=== PATIENT | male | born 1975 | race Two or more races ===

== ENCOUNTER 2024-04-29 11:51 | Inpatient (IN) | payer MEDICARE, OTHER ==
[~2024-04-29] VITALS: Ht 180.3 cm; Wt 120.2 kg
[2024-04-29] MEDS ORDERED: HEMOSTATIC MATRIX 8 ML 1 EACH PAD MC ONE (11:57)
[2024-04-29] MEDS ORDERED: CELLULOSE,OXIDIZED 1 EA PACK MC ONE (11:57)
[2024-04-29] MEDS ORDERED: CELLULOSE,OXIDIZED 1 EACH EACH MC ONE (11:58)
[2024-04-29] MEDS ORDERED: LIDOCAINE HCL/MPF 1% 30 ML VIAL IJ ONE (11:58)
[2024-04-29] MEDS ORDERED: CELLULOSE,OXIDIZED 1 PKT EACH MC ONE (11:58)
[2024-04-29] MEDS ORDERED: ROPIVACAINE HCL 0.5% 5 MG/ML 30ML VIAL ONE ×2 (11:58→16:34)
[2024-04-29] MEDS ORDERED: ANESTHESIA TRAY IN PYXIS 1 EA TRAY MC ONE (11:58)
[2024-04-29] MEDS ORDERED: HEPARIN SODIUM, PORCINE 1,000 UNIT/ML VIAL ONE (11:58)
[2024-04-29 13:26] LABS: BASOPHILS # (AUTO) 0.1 K/uL (0.0-0.2); BASOPHILS % (AUTO) 1.1 % (0.0-2.0); EOSINOPHILS # (AUTO) 0.1 K/uL (0.0-0.7); EOSINOPHILS % (AUTO) 1.8 % (0.0-6.0); HEMATOCRIT 28 % (39-51); HEMOGLOBIN 9.5 g/dL (13.5-17.5); LYMPHOCYTES # (AUTO) 0.7 K/uL (0.8-4.8); LYMPHOCYTES % (AUTO) 8.6 % (20.0-44.0); MEAN CORPUSCULAR HEMOGLOBIN 31 PG (26.0-33.0); MEAN CORPUSCULAR HGB CONC 34 g/dl (31.0-36.0); MEAN CORPUSCULAR VOLUME 92 fL (80-96); MONOCYTES # (AUTO) 0.8 K/uL (0.1-1.30); NEUTROPHILS % (AUTO) 78.5 % (43.0-81.0); PLATELET COUNT (AUTO) 246 K/uL (150-450); RED BLOOD CELL COUNT(AUTO) 3.06 MIL/uL (4.5-6.0); RED CELL DISTRIBUTION WIDTH 14.5 % (11.5-15.0); WHITE BLOOD COUNT (AUTO) 7.6 K/uL (4.3-11.0)
[2024-04-29 13:40] LABS: CALCIUM, SERUM 8.3 mg/dL (8.5-10.1); CREATININE 3.6 mg/dL (0.6-1.3); POTASSIUM 3.5 mmol/L (3.5-5.1)
[2024-04-29 13:59] LABS: BILIRUBIN,TOTAL 0.7 mg/dL (0.2-1.0); TOTAL PROTEIN, SERUM 7.1 g/dL (6.4-8.2)
[2024-04-29] MEDS ORDERED: ROCURONIUM BROMIDE 50 MG/5 ML ONE (14:59)
[2024-04-29] MEDS ORDERED: MAG HYDROX/AL HYDROX/SIMETH 30 ML UDC PO PRN (18:30)
[2024-04-29] MEDS ORDERED: hydrALAZINE HCL IV 20 MG VIAL IV ONE (18:30)
[2024-04-29] MEDS ORDERED: MAGNESIUM HYDROXIDE 30 ML UDC PO PRN (18:30)
[2024-04-29] MEDS ORDERED: ONDANSETRON HCL/PF 4 MG/2 ML VIAL IVP PRN (18:30)
[2024-04-29] MEDS ORDERED: HYDROMORPHONE 1 MG/1 ML DISP.SYRIN IV PRN (18:30)
[2024-04-29] MEDS ORDERED: Z GUARD REMEDY 4 OZ OINT TP PRN (18:30)
[2024-04-29] MEDS ORDERED: ACETAMINOPHEN 325 MG TABLET PO PRN (18:30)
[2024-04-29] MEDS ORDERED: DEXTROSE 50%-WATER 50 ML DISP.SYRIN IV PRN (19:00)
[2024-04-29] MEDS ORDERED: CLON1PAT12 TP (19:06)
[2024-04-29] MEDS ORDERED: LORA-259 PO (19:06)
[2024-04-29] MEDS ORDERED: FURO80TA3 PO (19:06)
[2024-04-29] MEDS ORDERED: VALS320T16 PO (19:06)
[2024-04-29] MEDS ORDERED: LISI40TA13 PO (19:06)
[2024-04-29] MEDS ORDERED: GABA-532 PO (19:06)
[2024-04-29] MEDS ORDERED: HYDR-3980 PO (19:06)
[2024-04-29] MEDS ORDERED: ATOR20TA PO (19:06)
[2024-04-29 20:00] VITALS: BP 177/71; TEMP 98.1; O2SAT 93
[2024-04-29] MEDS: HYDROCODONE/APAP 10/325MG TABLET PO PRN (20:09)
[2024-04-29] MEDS: CEFTAZIDIME 1 G in IV D5W 50 ML IV SCH (20:54)
[2024-04-29] MEDS: BLOOD SUGAR DIAGNOSTIC 1 EACH STRIP IN SCH (22:01)
[2024-04-29] MEDS: INSULIN REGULAR, HUMAN 100 UNIT/ML 3 ML VIAL SQ PRN (22:06)
[2024-04-29] MEDS: GABAPENTIN 100 MG CAPSULE PO SCH (22:08)
[2024-04-29] MEDS: ATORVASTATIN 40 MG TABLET PO SCH (22:08)
[2024-04-29] MEDS: LORAZEPAM 1 MG TABLET PO PRN (23:45)
[2024-04-30 06:54] LABS: BASOPHILS # (AUTO) 0.1 K/uL (0.0-0.2); BASOPHILS % (AUTO) 1.1 % (0.0-2.0); EOSINOPHILS # (AUTO) 0.1 K/uL (0.0-0.7); HEMATOCRIT 27 % (39-51); HEMOGLOBIN 9.3 g/dL (13.5-17.5); LYMPHOCYTES # (AUTO) 0.6 K/uL (0.8-4.8); LYMPHOCYTES % (AUTO) 8.6 % (20.0-44.0); MEAN CORPUSCULAR HEMOGLOBIN 32 PG (26.0-33.0); MEAN CORPUSCULAR HGB CONC 35 g/dl (31.0-36.0); MEAN CORPUSCULAR VOLUME 93 fL (80-96); MONOCYTES # (AUTO) 0.8 K/uL (0.1-1.30); MONOCYTES % (AUTO) 10.5 % (2.0-12.0); NEUTROPHILS # (AUTO) 5.8 K/uL (1.8-8.9); NEUTROPHILS % (AUTO) 77.8 % (43.0-81.0); PLATELET COUNT (AUTO) 227 K/uL (150-450); RED CELL DISTRIBUTION WIDTH 14.3 % (11.5-15.0); WHITE BLOOD COUNT (AUTO) 7.4 K/uL (4.3-11.0)
[2024-04-30 07:09] LABS: CALCIUM, SERUM 8.2 mg/dL (8.5-10.1); CREATININE 5.3 mg/dL (0.6-1.3); MAGNESIUM 2.1 mg/dL (1.8-2.4); PHOSPHORUS 4.6 mg/dL (2.5-4.9); POTASSIUM 3.6 mmol/L (3.5-5.1)
[2024-04-30 08:00] VITALS: BP 192/80; TEMP 98.2; O2SAT 98
[2024-04-30] MEDS: VALSARTAN 80 MG TABLET PO SCH (08:02)
[2024-04-30 08:08] VITALS: BP 192/80
[2024-04-30] MEDS: hydrALAZINE HCL IV 20 MG VIAL IV PRN (08:08)
== END 2024-04-30 11:06 | disposition home or self-care (01) | DRG 252 ==
LOC: DS 11:51 → MED 17:58
PROVIDERS: ADMIT Nurse Practitioner Acute Care
PROC: 03U Upper Arteries, Supplement (ICD-10-PCS; principal; 2024-04-29)
PROC: 03B83ZZ Excision of Left Brachial Artery, Percutaneous Approach (ICD-10-PCS; 2024-04-29)
PROC: 05U Upper Veins, Supplement (ICD-10-PCS; 2024-04-29)
PROC: 05B Upper Veins, Excision (ICD-10-PCS; 2024-04-29)
PROC: 0JH63XZ Insertion of Tunneled Vascular Access Device into Chest Subcutaneous Tissue and Fascia, Percutaneous Approach (ICD-10-PCS; 2024-04-29)
PROC: 05HM33Z Insertion of Infusion Device into Right Internal Jugular Vein, Percutaneous Approach (ICD-10-PCS; 2024-04-29)
PROC: B513YZA Fluoroscopy of Right Jugular Veins using Other Contrast, Guidance (ICD-10-PCS; 2024-04-29)
PROC: 5A1D70Z Performance of Urinary Filtration, Intermittent, Less than 6 Hours Per Day (ICD-10-PCS; 2024-04-30)
DX: T82.7XXA Infection and inflammatory reaction due to other cardiac and vascular devices, implants and grafts, initial encounter (principal); N18.6 End stage renal disease; I12.0 Hypertensive chronic kidney disease with stage 5 chronic kidney disease or end stage renal disease; E87.1 Hypo-osmolality and hyponatremia; I16.0 Hypertensive urgency; Z99.2 Dependence on renal dialysis; Y92.009 Unspecified place in unspecified non-institutional (private) residence as the place of occurrence of the external cause; Z86.19 Personal history of other infectious and parasitic diseases; E11.22 Type 2 diabetes mellitus with diabetic chronic kidney disease; D63.1 Anemia in chronic kidney disease; E78.5 Hyperlipidemia, unspecified; I72.1 Aneurysm of artery of upper extremity; M89.8X9 Other specified disorders of bone, unspecified site; Y83.2 Surgical operation with anastomosis, bypass or graft as the cause of abnormal reaction of the patient, or of later complication, without mention of misadventure at the time of the procedure; Z95.2 Presence of prosthetic heart valve; E66.9 Obesity, unspecified; Z68.37 Body mass index [BMI] 37.0-37.9, adult; Z79.2 Long term (current) use of antibiotics; Z79.899 Other long term (current) drug therapy
CPT/HCPCS: 36415; 71045-TC; 80048-TC; 80053-TC; 82962-TC; 83735-TC; 84100-TC; 85025-TC; A4223; A6403; C1750; G0378; J0360; J0690; J0713; J1644; J1815; J2704; J2795; J3490; J7050; J7060